=== PATIENT | female | born 1965 | race Caucasian/White ===

== ENCOUNTER 2020-10-30 15:01 | Outpatient (CLI) | payer OTHER ==
--- NOTE | 2020-10-30 16:07 | MRI ---
MRI OF THE RIGHT SHOULDER WITHOUT CONTRAST: 10/30/20 HISTORY: Injury of right shoulder. Shoulder pain with limited range of motion after a fall. COMPARISON: Shoulder radiographs 09/10/20. FINDINGS: BICEPS TENDON: Moderate intra-articular tendinosis. No displacement upon the lesser tuberosity. LABRUM: Volume loss throughout the superior labrum extending to the posterior superior labrum indicating technician's helper adan degeneration and fraying. ROTATOR CUFF: High grade tendinosis and 60-70% undersurface partial tearing of the subscapularis tendon from the le sser tuberosity. Full thickness full width supraspinatus tendon tear from the footprint retracted to the mid humeral head. 30 to 40% undersurface partial tearing of the subscapularis tendon at the footp rint extending to the critical zone and myotendinous junction. BONES: Moderate degenerative disease of the acromioclavicular joints. Subtle ossification of the trapezius m uscle insertion at the distal clavicle. Type II acromion. Normal glenoid version. No acute fracture. Some subtle edema at the footprint of the greater tuberosity at the supraspinatus tendon had previous ly inserted. MUSCLES: Mild supraspinatus and infraspinatus muscle atrophy. No significant muscular edema. IMPRESSION: 1. Full thickness full width supraspinatus tendon tear from the footprint retracted to the mid h umeral head. Moderate tendinosis and fraying of the torn fibers. There is also subtle footprint edema on the torn tendon. 2. High grade 60 to 70% undersurface partial tearing of the subscapularis tendon from the lesser tuberosity. 3. Chronic volume loss and fraying of the superior labrum extending to the posterior superior la maria d. 4. Moderate intra-articular biceps tendinosis. 5. Moderate subacromial/subdeltoid bursa effusion due to communication with the glenohumeral celio nt. 6. Mild supraspinatus and subscapularis muscle atrophy. POS: [facility]
== END 2020-10-30 15:02 | disposition home or self-care (01) ==
LOC: BICMRI 15:01
PROVIDERS: ATTEND Family Medicine
DX: S49.91XD Unspecified injury of right shoulder and upper arm, subsequent encounter (principal); M75.121 Complete rotator cuff tear or rupture of right shoulder, not specified as traumatic; M62.511 Muscle wasting and atrophy, not elsewhere classified, right shoulder; M67.813 Other specified disorders of tendon, right shoulder

== ENCOUNTER 2020-12-17 15:36 | Outpatient (CLI) | payer OTHER, SELFPAY ==
[2020-12-17 19:09] LABS: Anion Gap 14 mmol/L (10-20); BUN (Urea Nitrogen) 10 mg/dL (9.8-20.1); Calc. Creatinine Clearance 0 mL/min (70-130); Calcium 9.6 mg/dL (7.8-10.44); Carbon Dioxide 26 mmol/L (22-29); Chloride 101 mmol/L (98-107); Glucose 103 mg/dL (70-105); Potassium 4.1 mmol/L (3.5-5.1); Sodium 137 mmol/L (136-145)
[2020-12-17 19:22] LABS: #Basophils 0.1 10x3/uL (0.0-0.2); #Eosinphils 0.1 10x3/uL (0.0-0.5); #Monocytes 0.6 10x3/uL (0.0-1.1); #Neutrophils 2.5 10x3/uL (1.5-8.4); %Basophils 1.4 % (0.0-2.0); %Eosinophils 1.2 % (0.0-6.0); %Lymphocytes 45.8 % (18.0-47.0); %Monocytes 9.4 % (0.0-10.0); Hemoglobin 13.9 g/dL (12.0-15.5); Mean Corpuscular HGB CONC 33.6 g/dL (32.0-36.0); Mean Corpuscular Hemoglobin 36.5 pg (27.0-33.0); Mean Corpuscular Volume 108.7 fl (81.6-98.3); Platelet Count 185 10x3/uL (150-450); RBC Distribution Width 13.1 % (11.5-14.5); Red Blood Cell (RBC) Count 3.81 10x6/uL (3.90-5.03); White Blood Cell (WBC) Count 5.9 10x3/uL (3.5-10.5)
[2020-12-17 20:51] LABS: Bilirubin Neg (Negative); Blood, Urine Negative (Negative); Clarity Clear (Clear); Glucose, Urine (Dipstick) Normal (Negative); Ketone, Urine Negative (Negative); Leukocyte 25 (Negative); Nitrite Negative (Negative); Protein, Urine (Dipstick) Negative (Neg-Trace); Urobilinogen Normal mg/dL (Less than 2)
[2020-12-17 21:16] LABS: Macrocytosis SLIGHT = 6-15 cells (100X) (0-5/hpf); Platelet Morphology Comment Appears Adequate
[2020-12-17 21:31] LABS: RBC/HPF None Seen HPF (0-3); Squamous Epithelial 0-3 HPF (0-3); WBC/HPF 0-3 HPF (0-3)
[2020-12-18 06:51] LABS: SARS-CoV-2 PCR by NAA Not Detected (NotDetected)
== END 2020-12-17 15:37 | disposition home or self-care (01) ==
LOC: LABBT 15:36
PROVIDERS: ATTEND Orthopaedic Surgery
DX: Z01.818 Encounter for other preprocedural examination (principal); M75.101 Unspecified rotator cuff tear or rupture of right shoulder, not specified as traumatic; Z20.822 Contact with and (suspected) exposure to COVID-19
CPT/HCPCS: 80048; 81001; 85025; 87635; 93005; 93010; U0003; U0005

== ENCOUNTER 2020-12-20 06:23 | Day surgery (SDC) | payer OTHER ==
[2020-12-18 14:17] VITALS: BMI 35.2
[2020-12-20] MEDS ORDERED: Midazolam HCl 2 mg/2 ml Vial ONE (06:57)
[2020-12-20] MEDS ORDERED: Lidocaine 1% (PF) 30 ML VIAL ONE (06:57)
[2020-12-20] MEDS ORDERED: Fentanyl 100 MCG/2 ML VIAL ONE ×4 (06:57→11:02)
[2020-12-20] MEDS ORDERED: Sodium Chloride 0.9% 10 ML ONE (07:02)
[2020-12-20] MEDS ORDERED: Sodium Chloride 0.9% 0 ML ONE (07:02)
[2020-12-20] MEDS ORDERED: Ondansetron PF 4 MG/2 ML Vial ONE (07:06)
[2020-12-20] MEDS ORDERED: Scopolamine 1.5 mg/72 hour Patch ONE (07:06)
[2020-12-20] MEDS ORDERED: Bupivacaine PF 0.5% 30 ML VIAL ONE (07:28)
[2020-12-20] MEDS ORDERED: Lidocaine 1% PF 5 ML VIAL ONE (07:57)
[2020-12-20] MEDS ORDERED: Rocuronium Bromide 10 MG/ML (10ML VIAL) ONE (07:57)
[2020-12-20] MEDS ORDERED: PROPOFOL 200 MG/20 ML VIAL ONE (07:57)
[2020-12-20] MEDS ORDERED: ePHEDrine Sulfate 50 MG/10 ML VIAL ONE (07:57)
[2020-12-20] MEDS ORDERED: Promethazine HCl 25 MG/ML VIAL IM PRN (09:00)
[2020-12-20] MEDS ORDERED: Zolpidem Tartrate 5 MG TAB PO PRN (09:00)
[2020-12-20] MEDS ORDERED: traMADol HCl 50 MG TAB PO PRN ×2 (09:00)
[2020-12-20] MEDS ORDERED: Ondansetron PF 4 MG/2 ML Vial IVP PRN (09:00)
[2020-12-20] MEDS ORDERED: Ropivacaine 0.2% 550 ML 550 ML NERVE BLCK SCH (09:00)
[2020-12-20] MEDS ORDERED: HYDROcodone/Acetaminophen 5/325 mg Tablet PO PRN ×2 (09:00)
[2020-12-20] MEDS ORDERED: diphenhydrAMINE 50 MG/ML VIAL ONE (11:22)
== END 2020-12-20 14:19 | disposition home or self-care (01) ==
LOC: SDC 06:23
PROVIDERS: ATTEND Orthopaedic Surgery
PROC: 0RNJ0ZZ Release Right Shoulder Joint, Open Approach (ICD-10-PCS; principal; 2020-12-20)
PROC: 0LS30ZZ Reposition Right Upper Arm Tendon, Open Approach (ICD-10-PCS; principal; 2020-12-20)
PROC: 0LQ10ZZ Repair Right Shoulder Tendon, Open Approach (ICD-10-PCS; principal; 2020-12-20)
DX: M75.111 Incomplete rotator cuff tear or rupture of right shoulder, not specified as traumatic (principal); M25.811 Other specified joint disorders, right shoulder; M25.311 Other instability, right shoulder; Z79.899 Other long term (current) drug therapy
CPT/HCPCS: A4306; C1713; J0690; J1200; J2001; J2250; J2405; J2704; J2795; J3010; J3490; S0020